=== PATIENT | female | born 1995 | race Caucasian/White ===

== ENCOUNTER 2023-03-03 15:48 | Outpatient (CLI) | payer BC, MEDICAID, SELFPAY ==
--- NOTE | 2023-03-03 16:03 | XR_ITS ---
WS: [id number] Exam: XR hand RT 2V [id number] Date/Time of Exam: 03/03/2023 4:06 PM Reason For Exam: HAND PAIN, RIGHT Findings: No fractures, soft tissue swelling, or unusual calcifications are noted. The hand shows normal bony alignment. There is no irregularity of the bony architecture. XR/XR hand RT 2V [id number] IMPRESSION: Normal right hand.
== END 2023-03-03 15:49 | disposition home or self-care (01) ==
PROVIDERS: PCP Nurse Practitioner Family; Visit Provider Nurse Practitioner Family
DX: M79.641 Pain in right hand (principal)
CPT/HCPCS: 73120

== ENCOUNTER 2023-07-13 08:32 | Emergency (ER) | payer BC, MEDICAID, SELFPAY ==
[2023-07-13 08:47] VITALS: BP 130/85; PULSE 66; TEMP 36.8; O2SAT 99; BMI 32.9
[2023-07-13 09:00] LABS: Basophils # 0.1 10^3/uL (0.0-0.1); Basophils % 1.4 %; Eosinophils # 0.6 10^3/uL (0.0-0.8); Eosinophils % 7.8 %; Hematocrit 40.8 % (36-47); Lymphocytes # 2.1 10^3/uL (0.8-4.8); Lymphocytes % 30.5 %; Mean Corpuscular HGB Conc 32.4 g/dL (30-55); Mean Corpuscular Hemoglobin 28.3 pg (27-33); Mean Corpuscular Volume 87.4 fl (85-98); Mean Platelet Volume 9.9 fL (7.4-10.4); Monocytes # 0.4 10^3/uL (0.2-0.9); Monocytes % 5.8 %; Neutrophils # 3.79 10^3/uL (1.8-7.7); Neutrophils % 54.2 %; Nucleated Red Blood Cells % 0 %; Platelet Count 291 10^3/cmm (157-399); Red Blood Count 4.67 10^6/uL (3.85-5.65); Red Cell Distribution Width 11.9 % (12.1-15.1); White Blood Count 7.01 10^3/uL (3.29-11.43)
--- NOTE | 2023-07-13 09:12 | W.ED.ABDPA2 ---
HPI - Abdominal Pain General: Chief Complaint: Abdominal Pain Stated Complaint: abd pain Time Seen by Provider: 07/13/23 08:37 Source: patient Mode of arrival: ambulatory History of Present Illness: 28-year-old female complains of intermittent abdominal pain for the last couple of days. She has not noticed anything that exacerbates or relieves it she does notice that when she gets to the last for relatively brief. At times epigastric left upper quadrant region she notes she will get loose stools after it resolves that are usually mildly acholic. She denies any dysuria urgency or frequency or hematuria no hematochezia melena hematemesis coffee-ground emesis. Patient previously has had a and pelvic exploratory for ectopic . No fever sweats or chills. MD elicited complaint: abdominal pain Onset (ago): day(s) Pain Consistency: intermittent Location: Epigastric and LUQ Severity: moderate Quality: cramping Exacerbating factors: nothing Relieving factors: nothing Associated Symptoms: Reports GI cramping and diarrhea (Loose stools); Denies anorexia, belching, bloating, change in bowel habits, change in stool character, chills, coffee ground emesis, constipation, dyspepsia, dysuria, excessive flatus, fever(s), heartburn, hematochezia, hematuria, hematemesis, fecal incontinence, loose stools, melena, nausea, poor appetite, syncope and vomiting Review of Systems Const: Denies: fever(s) or chills Card: Denies: chest pain or syncope Resp: Denies: dyspnea GI: Reports: diarrhea (Loose stools) and GI cramping; Denies: abdominal pain, nausea, vomiting, hematemesis, coffee ground emesis, heartburn, constipation, bloating, belching, excessive flatus, fecal incontinence, change in bowel habits, change in stool character, hematochezia or melena : Denies: dysuria, urinary frequency, urinary urgency or hematuria Musc: Denies: neck pain or back pain Skin/Breast: Denies: rash PFSH ED PFSH: Family History (Updated 03/03/23 @ 08:01 by Cira Pepper LPN) Denies family history of Colon cancer Ovarian cancer Diabetes Heart disease Hypercholesteremia Breast cancer Hypertension Uterine cancer Thyroid disease Stroke Physical Exam Const: COMMON NORMALS: no acute distress GENERAL APPEARANCE: cooperative and comfortable ORIENTATION/CONSCIOUSNESS: Yes awake, Yes oriented to person, Yes oriented to place and Yes oriented to time HENMT: COMMON NORMALS: normocephalic, atraumatic and hearing grossly normal bilaterally HEAD & SCALP: normocephalic and atraumatic Resp: COMMON NORMALS: normal respiratory effort, No retractions, No use of accessory muscles and clear to auscultation bilaterally AUSCULTATION: clear to auscultation bilaterally Cardio: COMMON NORMALS: regular rate, regular rhythm and No murmurs present (Cardio) RATE: regular rate RHYTHM: regular rhythm GI: COMMON NORMALS: No hepatosplenomegaly present AUSCULTATION: Yes normoactive bowel sounds PALPATION: Yes Tenderness to palpation present (GI) Details: RUQ (Vague tenderness, negative Orosco sign), No Guarding due to palpation present (GI) and Yes No hepatosplenomegaly present Extremity: COMMON NORMALS: normal to inspection, capillary refill normal, no clubbing, cyanosis or edema, no calf tenderness and no pedal edema Neuro: SENSORIUM/ORIENTATION: Yes oriented to person, Yes oriented to place and Yes oriented to time Skin: COMMON NORMALS: no rashes or lesions noted GENERAL SKIN EXAM: no rashes or lesions noted Course Vital Signs: Vital signs: Vital Signs Temperature 98.3 F 07/13/23 08:47 Pulse Rate 65 07/13/23 10:38 Respiratory Rate 16 07/13/23 10:38 Blood Pressure 128/75 07/13/23 10:38 Pulse Oximetry 100 07/13/23 10:38 Oxygen Delivery Me thod Room Air 07/13/23 08:47 MDM - Abdominal Pain Medical Decision Making Labs reviewed no significant abnormalities. She has some vague abdominal discomfort but nothing suggestive of peritonitis or acute ongoing issue. She is somewhat better after medication and IV fluids. Discharge home with antiemetics clear liquid diet. Some of her history is suggestive of biliary colic if she has persistent or recurrent symptoms encouraged to follow-up with her primary care doctor can sideration of further evaluation including possible ultrasound of the gallbladder and HIDA scan as indicated. Medical Records I reviewed the patient's medical records. Lab Data I reviewed the patient's lab results. 07/13/23 08:53 07/13/23 08:53 Labs/Radiology: Laboratory Results WBC 7.01 10^3/uL (3.29-11.43) 07/13/23 08:53 RBC 4.67 10^6/uL (3.85-5.65) 07/13/23 08:53 Hgb 13.20 g/dL (11.27-16.99) 07/13/23 08:53 Hct 40.8 % (36-47) 07/13/23 08:53 MCV 87.4 fl (85-98) 07/13/23 08:53 MCH 28.3 pg (27-33) 07/13/23 08:53 MCHC 32.4 g/dL (30-55) 07/13/23 08:53 RDW 11.9 % (12.1-15.1) L 07/13/23 08:53 Plt Count 291 10^3/cmm (157-399) 07/13/23 08:53 MPV 9.9 fL (7.4-10.4) 07/13/23 08:53 Neut % (Auto) 54.2 % 07/13/23 08:53 Lymph % (Auto) 30.5 % 07/13/23 08:53 [place] % (Auto) 5.8 % 07/13/23 08:53 Eos % (Auto) 7.8 % 07/13/23 08:53 Baso % (Auto) 1.4 % 07/13/23 08:53 Neut # (Auto) 3.79 10^3/uL (1.8-7.7) 07/13/23 08:53 Lymph # (Auto) 2.1 10^3/uL (0.8-4.8) 07/13/23 08:53 [place] # (Auto) 0.4 10^3/uL (0.2-0.9) 07/13/23 08:53 Eos # (Auto) 0.6 10^3/uL (0.0-0.8) 07/13/23 08:53 Baso # (Auto) 0.1 10^3/uL (0.0-0.1) 07/13/23 08:53 Nucleated RBC % (auto) 0 % 07/13/23 08:53 Nucleated RBCs # 0.0 /100WBC 07/13/23 08:53 Sodium 140 mmol/L (136-145) 07/13/23 08:53 Potassium 3.9 mmol/L (3.5-5.1) 07/13/23 08:53 Chloride 105 mmol/L (98-107) 07/13/23 08:53 Carbon Dioxide 27 mmol/L (22-29) 07/13/23 08:53 Anion Gap 11.9 (5-19) 07/13/23 08:53 BUN 10 mg/dL (6-20) 07/13/23 08:53 Creatinine 0.6 mg/dL (0.5-0.9) 07/13/23 08:53 GFR Calculation 119.9 mL/min (90-130) 07/13/23 08:53 Glucose 93 mg/dL (65-115) 07/13/23 08:53 Calculated Osmolality 289 mOsm/kg (285-295) 07/13/23 08:53 Calcium 8.9 mg/dL (8.5-10.5) 07/13/23 08:53 Total Bilirubin 0.7 mg/dL (0.15-1.2) 07/13/23 08:53 AST 14 U/L (0-32) 07/13/23 08:53 ALT 16 U/L (0-33) 07/13/23 08:53 Alkaline Phosphatase 78 U/L (35-105) 07/13/23 08:53 Total Protein 7.4 g/dL (6.6-8.7) 07/13/23 08:53 Albumin 4.3 g/dL (3.5-5.2) 07/13/23 08:53 Globulin 3.1 g/dL (1.3-4.6) 07/13/23 08:53 Lipase 22 U/L (13-60) 07/13/23 08:53 Urine Color Straw (Yellow) 07/13/23 09:22 Urine Appearance Hazy (CLEAR) A 07/13/23 09:22 Urine pH 5 (5-7) 07/13/23 09:22 Ur Specific [place] 1.010 (1.005-1.030) 07/13/23 09:22 Urine Protein Neg (Negative) 07/13/23 09:22 Urine Glucose (UA) Norm (Normal) 07/13/23 09:22 Urine Ketones Negative (Negative) 07/13/23 09:22 Urine Blood Neg (Negative) 07/13/23 09:22 Urine Nitrate Negative (Negative) 07/13/23 09:22 Urine Bilirubin Neg (Negative) 07/13/23 09:22 Urine Urobilinogen Norm mg/dL (Negative) 07/13/23 09:22 Ur Leukocyte Esterase Trace (Negative) H 07/13/23 09:22 Urine RBC 0-4 /hpf (0-2) H 07/13/23 09:22 Urine WBC 5-10 /hpf (0-5) H 07/13/23 09:22 Ur Squamous Epith Cells 5-10 /hpf (0-5) H 07/13/23 09:22 Amorphous Sediment Not Reportable 07/13/23 09:22 Urine Bacteria 1+ /hpf (NONE) H 07/13/23 09:22 No radiology studies performed this visit Discharge Plan Discharge Patient Disposition: Home Clinical Impression: Gastroenteritis Condition: Stable Prescriptions: New ondansetron HCl 4 mg tablet 4 mg PO Q6H PRN (Reason: nausea and vomiting) Qty: 20 0RF No Action erythromycin 5 mg/gram (0.5 %) ointment 1 applic ophthalmic (eye) 6XD 10 Days Qty: 3.5 0RF Discharge Orders: Discharge ED (Routine); Ordered 07/13/23 Ordered By: Blaze Orosco Referrals: Diamond Rendon FNP [Primary Care Provider] - Discharge Diet: Clear Liquid Discharge Activity: Increase activity as tolerated Patient Instructions: Gastroenteritis (ED), Opioid Safety, Pain Management Activity Restrictions/Additional Instructions: Clear liquid diet for 24 to 48 hours and advance as tolerated Coding Level of Care Code ED Mechanical Maintenance Engineer for Ana Gray
[2023-07-13 09:16] LABS: Alanine Aminotransferase 16 U/L (0-33); Albumin Level 4.3 g/dL (3.5-5.2); Alkaline Phosphatase 78 U/L (35-105); Anion Gap 11.9 (5-19); Aspartate Amino Transferase 14 U/L (0-32); Blood Urea Nitrogen 10 mg/dL (6-20); Calcium 8.9 mg/dL (8.5-10.5); Carbon Dioxide 27 mmol/L (22-29); Chloride 105 mmol/L (98-107); Globulin 3.1 g/dL (1.3-4.6); Glomerular Filtration Rate 119.9 mL/min (90-130); Glucose 93 mg/dL (65-115); Lipase 22 U/L (13-60); Osmolality Calculated 289 mOsm/kg (285-295); Potassium 3.9 mmol/L (3.5-5.1); Sodium 140 mmol/L (136-145); Total Bilirubin 0.7 mg/dL (0.15-1.2); Total Protein 7.4 g/dL (6.6-8.7)
[2023-07-13] MEDS: ondansetron 2 mg/ML SDV 2 mL 4 MG IVP (09:30)
[2023-07-13] MEDS: sodium chloride 0.9% 1,000 ML 999 ML IV (09:30)
[2023-07-13 10:04] LABS: Glucose Urine UA Norm (Normal); Ketones Urine Negative (Negative); Protein Urine Neg (Negative); Urine Appearance Hazy (CLEAR); Urine Color Straw (Yellow); pH Urine 5 (5-7)
[2023-07-13 10:05] LABS: Add Urine Culture? No; Add Urine Microscopic? YES; Bacteria Urine 1+ /hpf; Bilirubin Urine Neg (Negative); Blood Urine Neg (Negative); Leukocyte Esterase Urine Trace (Negative); Nitrate Urine Negative (Negative); RBC Urine 0-4 /hpf (0-2); Urobilinogen Urine Norm (Negative)
--- NOTE | 2023-07-13 10:32 | PC.NURSE ---
one liter infused, patient declined the second liter. notified.
[2023-07-13 10:38] VITALS: BP 128/75; PULSE 65; RESP 16; O2SAT 100
== END 2023-07-13 10:39 | disposition home or self-care (01) ==
PROVIDERS: Emergency Provider Family Medicine; PCP Nurse Practitioner Family
DX: K52.9 Noninfective gastroenteritis and colitis, unspecified (principal)
CPT/HCPCS: 80053; 81001; 83690; 85025; 96374; 99284; J2405; J7030

== ENCOUNTER 2023-07-29 09:21 | Outpatient (CLI) | payer BC, MEDICAID, SELFPAY ==
--- NOTE | 2023-07-29 09:37 | CT_ITS ---
WS: [id number] CT ABDOMEN AND PELVIS NONCONTRAST HISTORY: ABDOMINAL PAIN TECHNIQUE: Imaging performed through the abdomen and pelvis. Coronal and sagittal reformats are submi tted. All CT scans at [place] use at least one of these dose optimization techniques: auto mated exposure control; mA and/or kV adjustment per patient size (includes targeted exams where dose is matched to clinical indication); or iterative reconstruction. DLP: 568.80 mGy.cm COMPARISON: None available. Lower thorax: Lung bases are clear. Visualized heart is normal. No hiatal hernia. Liver: Normal size liver. No mass or bile duct dilatation. Gallbladder: Normal gallbladder. No pericholecystic fluid or cholelithiasis. No gallbladder wall thic kening. Pancreas: Normal size and attenuation. Normal pancreatic duct. No pancreatitis or mass. Spleen: Normal. Adrenal glands: Normal. No mass. Right kidney: Normal size kidney with no mass or hydronephrosis. Left kidney: Normal size kidney with no mass or hydronephrosis. Aorta: Normal abdominal aorta, no aneurysm or atherosclerosis. No free fluid, intraperitoneal air or significant lymphadenopathy. GI tract: Normal noncontrast imaging of the stomach, small bowel and colon. No obstruction or wall th ickening. Normal appendix. Abdominal wall: Negative. No hernia. Pelvis: Uterus is midline. LEFT ovary is large measuring 4.4 x 3.7 x 2.8 cm. No adjacent inflammation . RIGHT ovary is smaller size. Osseous structures: Sclerotic focus in the RIGHT humeral head. Consistent with a bone island. IMPRESSION: 1. No renal obstructing or perinephric stranding. 2. Normal appendix. 3. Mildly enlarged LEFT ovary, 4.4 x 3.7 x 2.8 cm. Recommend additional pelvic ultrasound to include transvaginal imaging. 4. No GI tract obstruction or colitis.
[2023-07-29] MEDS: iohexol 350 mg/mL 500 mL Btl (per mL) PO (09:55)
== END 2023-07-29 09:22 | disposition home or self-care (01) ==
LOC: RAD 09:21
PROVIDERS: PCP Nurse Practitioner Family; Visit Provider Nurse Practitioner Family
DX: R10.9 Unspecified abdominal pain (principal); N83.8 Other noninflammatory disorders of ovary, fallopian tube and broad ligament
CPT/HCPCS: 74176; Q9967

== ENCOUNTER 2023-08-18 10:19 | Outpatient (CLI) | payer BC, MEDICAID, SELFPAY ==
--- NOTE | 2023-08-18 10:28 | US_ITS ---
WS: [id number] US transvaginal [id number] HISTORY: L OVARY ENLARGEMENT COMPARISON: CT 07/29/2023 Uterus: 10.3 cm x 5.6 cm x 4.7 cm. Mildly enlarged uterus. No fibroid or mass. Endometrium: 1.4 cm. Normal Right ovary: 3.3 cm x 2.4 cm x 3.1 cm. Normal size ovary. Dominant follicle measures 2.3 x 1.8 x 2.1 cm. No solid mass. Left ovary: 2.4 cm x 2.7 cm x 1.9 cm. Ovary is normal size by ultrasound. Ovary has decreased in size as compared to the CT. No free fluid in the cul-de-sac. IMPRESSION: 1. Normal size and appearance of the LEFT ovary. There may have been a cyst that ruptured in the inte rval. 2. Mildly enlarged uterus.
== END 2023-08-18 10:20 | disposition home or self-care (01) ==
LOC: RAD 10:19
PROVIDERS: PCP Nurse Practitioner Family; Visit Provider Nurse Practitioner Family
DX: N83.8 Other noninflammatory disorders of ovary, fallopian tube and broad ligament (principal); N85.2 Hypertrophy of uterus
CPT/HCPCS: 76830

== ENCOUNTER 2023-11-17 09:01 | Inpatient (IN) | payer MEDICAID, SELFPAY ==
[2023-11-17] VITALS (16 sets, daily range): BP systolic 94–116; BP diastolic 40–75; PULSE 62–98; RESP 9–17; TEMP 36.1–37.3; O2SAT 96–100; BMI 34.0; BMI 36.6
[2023-11-17 09:43] LABS: Basophils # 0.1 10^3/uL (0.0-0.1); Basophils % 0.8 %; Eosinophils # 0.3 10^3/uL (0.0-0.8); Hematocrit 38.8 % (36-47); Lymphocytes # 2.3 10^3/uL (0.8-4.8); Lymphocytes % 22.4 %; Mean Corpuscular HGB Conc 31.7 g/dL (30-55); Mean Corpuscular Hemoglobin 27.9 pg (27-33); Mean Platelet Volume 10.1 fL (7.4-10.4); Monocytes # 0.5 10^3/uL (0.2-0.9); Monocytes % 5.2 %; Neutrophils # 6.96 10^3/uL (1.8-7.7); Neutrophils % 68.2 %; Nucleated Red Blood Cells % 0 %; Platelet Count 259 10^3/cmm (157-399); Red Blood Count 4.41 10^6/uL (3.85-5.65); Red Cell Distribution Width 12.8 % (12.1-15.1); White Blood Count 10.21 10^3/uL (3.29-11.43)
--- NOTE | 2023-11-17 09:44 | W.ED.ABDPA2 ---
HPI - Abdominal Pain General: Chief Complaint: Abdominal Pain Stated Complaint: right side abd pain and back pain Time Seen by Provider: 11/17/23 09:05 Source: patient Mode of arrival: ambulatory History of Present Illness: 28-year-old female presents emergency room with complaint of right lower quadrant pain that began early this morning vomited once no dysuria urgency or frequency. She has previously had this pain was resolved spontaneously in the past. No vomiting or diarrhea MD elicited complaint: abdominal pain Onset (ago): minute(s) Pain Consistency: constant Location: RLQ Severity: moderate Quality: sharp Exacerbating factors: movement Relieving factors: nothing Associated Symptoms: Reports nausea; Denies anorexia, belching, bloating, change in bowel habits, change in stool character, chills, coffee ground emesis, constipation, GI cramping, diarrhea, dyspepsia, dysuria, excessive flatus, fever(s), heartburn, hematochezia, hematuria, hematemesis, fecal incontinence, loose stools, melena, poor appetite, syncope and vomiting Review of Systems Const: Denies: fever(s), chills, fatigue or malaise Card: Denies: chest pain or syncope Resp: Denies: dyspnea GI: Reports: abdominal pain and nausea; Denies: vomiting, hematemesis, coffee ground emesis, heartburn, diarrhea, constipation, bloating, GI cramping, belching, excessive flatus, fecal incontinence, change in bowel habits, change in stool character, hematochezia or melena : Denies: dysuria or hematuria Musc: Denies: neck pain or back pain Skin/Breast: Denies: rash PFSH ED PFSH: Family History Denies family history of Colon cancer Ovarian cancer Diabetes Heart disease Hypercholesteremia Breast cancer Hypertension Uterine cancer Thyroid disease Stroke Physical Exam Const: GENERAL APPEARANCE: cooperative and comfortable ORIENTATION/CONSCIOUSNESS: Yes awake, Yes oriented to person, Yes oriented to place and Yes oriented to time HENMT: COMMON NORMALS: normocephalic, atraumatic and hearing grossly normal bilaterally HEAD & SCALP: normocephalic and atraumatic Resp: COMMON NORMALS: normal respiratory effort, No retractions, No use of accessory muscles and clear to auscultation bilaterally AUSCULTATION: clear to auscultation bilaterally Cardio: COMMON NORMALS: regular rate, regular rhythm and No murmurs present (Cardio) RATE: regular rate RHYTHM: regular rhythm GI: COMMON NORMALS: No hepatosplenomegaly present AUSCULTATION: Yes normoactive bowel sounds PALPATION: Yes Tenderness to palpation present (GI) Details: RLQ, No Guarding due to palpation present (GI) and Yes No hepatosplenomegaly present : COMMON NORMALS: Yes no CVA tenderness BLADDER/KIDNEY EXAM: Yes no CVA tenderness Back/Pelvis: COMMON NORMALS: no CVA tenderness Extremity: COMMON NORMALS: normal to inspection, capillary refill normal, no clubbing, cyanosis or edema, no calf tenderness and no pedal edema Neuro: SENSORIUM/ORIENTATION: Yes oriented to person, Yes oriented to place and Yes oriented to time Skin: COMMON NORMALS: no rashes or lesions noted GENERAL SKIN EXAM: no rashes or lesions noted Course Vital Signs: Vital signs: Vital Signs Temperature 99.2 F 11/17/23 09:33 Pulse Rate 74 11/17/23 14:30 Respiratory Rate 16 11/17/23 14:30 Blood Pressure 108/75 11/17/23 14:30 Pulse Oximetry 100 11/17/23 14:30 Oxygen Delivery Me thod Room Air 11/17/23 14:30 MDM - Abdominal Pain Medical Decision Making CT question of ovarian torsion on the right. Ultrasound confirmed. discussed Dr. Holley, reviewed diagnosis. Reviewed CT and ultrasound results. Dr. Holley anticipates exploratory laparotomy. Differential Diagnosis Likely abdominal pain Medical Records I reviewed the patient's medical records. Lab Data I reviewed the patient's lab results. 11/17/23 09:30 11/17/23 09:30 Labs/Radiology: Laboratory Results WBC 10.21 10^3/uL (3.29-11.43) 11/17/23 09:30 RBC 4.41 10^6/uL (3.85-5.65) 11/17/23 09:30 Hgb 12.30 g/dL (11.27-16.99) 11/17/23 09:30 Hct 38.8 % (36-47) 11/17/23 09:30 MCV 88.0 fl (85-98) 11/17/23 09:30 MCH 27.9 pg (27-33) 11/17/23 09:30 MCHC 31.7 g/dL (30-55) 11/17/23 09:30 RDW 12.8 % (12.1-15.1) 11/17/23 09:30 Plt Count 259 10^3/cmm (157-399) 11/17/23 09:30 MPV 10.1 fL (7.4-10.4) 11/17/23 09:30 Neut % (Auto) 68.2 % 11/17/23 09:30 Lymph % (Auto) 22.4 % 11/17/23 09:30 [place] % (Auto) 5.2 % 11/17/23 09:30 Eos % (Auto) 3.0 % 11/17/23 09:30 Baso % (Auto) 0.8 % 11/17/23 09:30 Neut # (Auto) 6.96 10^3/uL (1.8-7.7) 11/17/23 09:30 Lymph # (Auto) 2.3 10^3/uL (0.8-4.8) 11/17/23 09:30 [place] # (Auto) 0.5 10^3/uL (0.2-0.9) 11/17/23 09:30 Eos # (Auto) 0.3 10^3/uL (0.0-0.8) 11/17/23 09:30 Baso # (Auto) 0.1 10^3/uL (0.0-0.1) 11/17/23 09:30 Nucleated RBC % (auto) 0 % 11/17/23 09:30 Nucleated RBCs # 0.0 /100WBC 11/17/23 09:30 Sodium 138 mmol/L (136-145) 11/17/23 09:30 Potassium 3.9 mmol/L (3.5-5.1) 11/17/23 09:30 Chloride 103 mmol/L (98-107) 11/17/23 09:30 Carbon Dioxide 25 mmol/L (22-29) 11/17/23 09:30 Anion Gap 13.9 (5-19) 11/17/23 09:30 BUN 12 mg/dL (6-20) 11/17/23 09:30 Creatinine 0.5 mg/dL (0.5-0.9) 11/17/23 09:30 GFR Calculation 148.0 mL/min (90-130) H 11/17/23 09:30 Glucose 112 mg/dL (65-115) 11/17/23 09:30 Calculated Osmolality 287 mOsm/kg (285-295) 11/17/23 09:30 Calcium 8.5 mg/dL (8.5-10.5) 11/17/23 09:30 Total Bilirubin 0.5 mg/dL (0.15-1.2) 11/17/23 09:30 AST 10 U/L (0-32) 11/17/23:30 ALT 11 U/L (0-33) 11/17/23 09:30 Alkaline Phosphatase 72 U/L (35-105) 11/17/23 09:30 Total Protein 6.9 g/dL (6.6-8.7) 11/17/23 09:30 Albumin 4.1 g/dL (3.5-5.2) 11/17/23 09:30 Globulin 2.8 g/dL (1.3-4.6) 11/17/23 09:30 HCG, Qual Negative (Negative) 11/17/23 09:30 Urine Color Yellow (Yellow) 11/17/23 10:00 Urine Appearance Clear (CLEAR) 11/17/23 10:00 Urine pH 6 (5-7) 11/17/23 10:00 Ur Specific [place] 1.020 (1.005-1.030) 11/17/23 10:00 Urine Protein Neg (Negative) 11/17/23 10:00 Urine Glucose (UA) Norm (Normal) 11/17/23 10:00 Urine Ketones Negative (Negative) 11/17/23 10:00 Urine Blood Neg (Negative) 11/17/23 10:00 Urine Nitrate Negative (Negative) 11/17/23 10:00 Urine Bilirubin Neg (Negative) 11/17/23 10:00 Urine Urobilinogen Norm mg/dL (Negative) 11/17/23 10:00 Ur Leukocyte Esterase Trace (Negative) H 11/17/23 10:00 Urine RBC 0-4 /hpf (0-2) H 11/17/23 10:00 Urine WBC 0-4 /hpf (0-5) H 11/17/23 10:00 Ur Squamous Epith Cells 0-4 /hpf (0-5) H 11/17/23 10:00 Amorphous Sediment Not Reportable 11/17/23 10:00 Urine Bacteria Trace /hpf (NONE) 11/17/23 10:00 Urine Mucus 2+ /hpf 11/17/23 10:00 All radiology interpretation(s) finalized by discharge Discharge Plan Discharge Admit Provider: Moses Holley Condition: Stable Coding Level of Care Code ED Provider Relations Representative for Ana Gray
--- NOTE | 2023-11-17 09:52 | CT_ITS ---
WS: [id number] CT ABDOMEN AND PELVIS NONCONTRAST HISTORY: Abdominal pain TECHNIQUE: Imaging performed through the abdomen and pelvis. Coronal and sagittal reformats are submi tted. All CT scans at [facility] use at least one of these dose optimization techniques: auto mated exposure control; mA and/or kV adjustment per patient size (includes targeted exams where dose is matched to clinical indication); or iterative reconstruction. DLP: 877.83 mGy.cm COMPARISON: 07/29/2023 Lower thorax: Lung bases are clear. Visualized heart is normal. No hiatal hernia. Liver: Hepatic steatosis. Otherwise negative. Gallbladder: Normal gallbladder. No pericholecystic fluid or cholelithiasis. No gallbladder wall thic kening. Pancreas: Normal size and attenuation. Normal pancreatic duct. No pancreatitis or mass. Spleen: Normal. Adrenal glands: Normal. No mass. Right kidney: Normal size kidney with no mass or hydronephrosis. Left kidney: Normal size kidney with no mass or hydronephrosis. Aorta: Normal abdominal aorta, no aneurysm or atherosclerosis. No free fluid, intraperitoneal air or significant lymphadenopathy. GI tract: The appendix is not identified on today's examination. No GI tract obstruction. Abdominal wall: Negative. No hernia. Pelvis: There is a large complex mass in the RIGHT lower quadrant which is obscuring the appendix and also abuts the broad ligament and the uterus. I suspect this is probably ovarian torsion with some h emorrhage and edema. Mass measures 5.5 x 6.9 x 7.5 cm and is in continuity with the ovarian suspensor y ligament. Osseous structures: Unremarkable. IMPRESSION: 1. Complex mass in the RIGHT lower quadrant inseparable from the broad ligament and obscuring the ap pendix. Heterogeneous mass measures 5.5 x 6.9 x 7.5 cm. Differential includes ovarian torsion, ectopi c and appendicitis. The most likely diagnosis is ovarian torsion. Recommend transvaginal pe lvic ultrasound. Correlate with negative beta hCG. 2. No free fluid. 3. The appendix is not identified and obscured by the soft tissue mass in the RIGHT lower quadrant. 4. No renal obstruction. Notified Blaze Orosco DO at 11/17/2023 11:12 AM.
[2023-11-17 09:57] LABS: HCG, Serum Qual Negative (Negative)
[2023-11-17 09:58] LABS: Alanine Aminotransferase 11 U/L (0-33); Albumin Level 4.1 g/dL (3.5-5.2); Alkaline Phosphatase 72 U/L (35-105); Anion Gap 13.9 (5-19); Aspartate Amino Transferase 10 U/L (0-32); Blood Urea Nitrogen 12 mg/dL (6-20); Calcium 8.5 mg/dL (8.5-10.5); Carbon Dioxide 25 mmol/L (22-29); Chloride 103 mmol/L (98-107); Creatinine Clr Calc Pharmacy 163.6553; Globulin 2.8 g/dL (1.3-4.6); Glucose 112 mg/dL (65-115); Osmolality Calculated 287 mOsm/kg (285-295); Potassium 3.9 mmol/L (3.5-5.1); Sodium 138 mmol/L (136-145); Total Bilirubin 0.5 mg/dL (0.15-1.2); Total Protein 6.9 g/dL (6.6-8.7)
[2023-11-17] MEDS: ketorolac 30 mg/mL INJ IVP ×2 (10:10→21:30)
[2023-11-17] MEDS: ondansetron 2 mg/ML SDV 2 mL 4 MG IVP ×2 (10:10→21:30)
[2023-11-17] MEDS: sodium chloride 0.9% 1,000 ML 999 ML IV (10:13)
--- NOTE | 2023-11-17 11:10 | US_ITS ---
WS: [id number] US pelv w/transvag [id number] HISTORY: pelvic pain - ? R ovarian torsion? COMPARISON: Transvaginal pelvic ultrasound 08/18/2023, CT 11/17/2023 Uterus: 10.6 cm x 4.8 cm x 5.8 cm. Mildly enlarged anteverted uterus. Endometrium: 1.3 cm. Small amount of fluid along the endometrial canal. No mass or increased vascular ity. Right ovary: The RIGHT ovary as visualized on the prior examination of 08/18/2023 is not identified. There is now a complex mass in the RIGHT adnexa without vascularity measuring 5.6 x 4.0 x 4.7 cm. The re is no flow identified. This is most likely an ovarian torsion within ischemic ovary. Left ovary: 3.1 cm x 3.3 cm x 2.6 cm. Normal size and vascularity, no cystic or solid masses. No free fluid in the cul-de-sac. IMPRESSION: 1. Heterogeneous RIGHT adnexal mass without vascularity measures 5.6 x 4.0 x 4.7 cm. Based upon the prior imaging from 08/18/[address] today this is most likely an ovarian torsion with loss of va scularity. Consider DIRECTOR OF PUPIL PERSONNEL PROGRAM consultation. No ovarian mass or lead point was identified on the study of . 2. No free fluid. 3. Normal LEFT ovary.
[2023-11-17 11:23] LABS: Urine Appearance Clear (CLEAR); Urine Color Yellow (Yellow); pH Urine 6 (5-7)
[2023-11-17 11:24] LABS: Add Urine Microscopic? YES; Bilirubin Urine Neg (Negative); Blood Urine Neg (Negative); Glucose Urine UA Norm (Normal); Ketones Urine Negative (Negative); Leukocyte Esterase Urine Trace (Negative); Nitrate Urine Negative (Negative); Protein Urine Neg (Negative); Urobilinogen Urine Norm (Negative)
[2023-11-17 11:38] LABS: Add Urine Culture? No; Bacteria Urine TRACE /hpf; Mucus Urine 2+ /hpf; RBC Urine 0-4 /hpf (0-2); Squamous Epithelial Cell Urine 0-4 /hpf (0-5); WBC Urine 0-4 /hpf (0-5)
[2023-11-17] MEDS: morphine 4 mg/mL SDV 1 mL IVP (13:15)
--- NOTE | 2023-11-17 16:51 | P.ANESASSM_ITS ---
Pre-Anesthetic Assessment Height/Weight: Height 1.55 m Weight 81.647 kg Temp Pulse Resp BP Pulse Ox O2 Del Method 98.0 F 68 17 115/73 100 Room Air 11/17/23 16:40 11/17/23 16:40 11/17/23 16:40 11/17/23 16:40 11/17/23 16:40 11/17/23 16:40 Operation Date: 11/17/23 17:00 Proposed Procedures p Laparoscopy Diagnostic(Not Applicable) - Moses Hollye MD Familial anesthetic complications: none Was Beta Liam taken within 24 hours: N/A Was Clonidine taken within 24 hours: N/A Last intake: Intake Last Liquid Date 11/17/23 Last Liquid Time 07:00 Last Solid Date 11/16/23 Last Solid Time 22:00 Social Tobacco (vapes) and No alcohol Exam alert, oriented x 3, clear to auscultation bilaterally and regular rate & rhythm Airway Submandibular: within normal limits Cervical ROM: within normal limits Mallampati: Class II Dentition: full Metabolic Morbid Obesity Anesthetic Plan ASA status: 2E Anesthesia: General (Mod RSI) Medications/Allergies Home Medications Medication Instructions Recorded Confirmed Last Taken Type ascorbic acid (vitamin C) 500 mg 500 mg PO BID 11/17/23 11/17/23 Unknown History tablet (Vitamin C) Allergies Allergy/AdvReac Type Severity Reaction Status Date / Time No Known Allergies Allergy Verified 11/17/23 09:37 [facility] Anesthesia Family History Denies family history of Colon cancer Ovarian cancer Diabetes Heart disease Hypercholesteremia Breast cancer Hypertension Uterine cancer Thyroid disease Stroke Data Anesthesia 11/17/23 09:30 11/17/23 09:30 Short CBC 11/17/23 Range/Units 09:30 WBC 10.21 (3.29-11.43) 10^3/uL Hgb 12.30 (11.27-16.99) g/dL Hct 38.8 (36-47) % MCV 88.0 (85-98) fl Plt Count 259 (157-399) 10^3/cmm Neut % (Auto) 68.2 % Neut # (Auto) 6.96 (1.8-7.7) 10^3/uL BMP 11/17/23 09:30 Sodium 138 Potassium 3.9 Chloride 103 Carbon Dioxide 25 BUN 12 Creatinine 0.5 Glucose 112 Calcium 8.5 Liver Function 11/17/23 Range/Units 09:30 Total Bilirubin 0.5 (0.15-1.2) mg/dL AST 10 (0-32) U/L ALT 11 (0-33) U/L Alkaline Phosphatase 72 (35-105) U/L Albumin 4.1 (3.5-5.2) g/dL Urine 11/17/23 Range/Units 10:00 Urine Color Yellow (Yellow) Urine Appearance Clear (CLEAR) Urine pH 6 (5-7) Ur Specific [place] 1.020 (1.005-1.030) Urine Protein Neg (Negative) Urine Glucose (UA) Norm (Normal) Urine Ketones Negative (Negative) Urine Nitrate Negative (Negative) Urine Bilirubin Neg (Negative) Ur Leukocyte Esterase Trace H (Negative) Urine RBC 0-4 H (0-2) /hpf Urine WBC 0-4 H (0-5) /hpf Cardiac Studies: 2 No Data to Display
--- NOTE | 2023-11-17 16:51 | P.HP_ITS ---
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 Review of Systems 2 Const: Denies: fever(s), chills, fatigue or malaise Card: Denies: chest pain or syncope Resp: Denies: dyspnea GI: Reports: abdominal pain and nausea; Denies: vomiting, hematemesis, coffee ground emesis, heartburn, diarrhea, constipation, bloating, GI cramping, belching, excessive flatus, fecal incontinence, change in bowel habits, change in stool character, hematochezia or melena : Denies: dysuria or hematuria Musc: Denies: neck pain or back pain Skin/Breast: Denies: rash Medications/Allergies Home Medications Medication Instructions Recorded Confirmed Last Taken Type ascorbic acid (vitamin C) 500 mg 500 mg PO BID 11/17/23 11/17/23 Unknown History tablet (Vitamin C) Allergies Allergy/AdvReac Type Severity Reaction Status Date / Time No Known Allergies Allergy Verified 11/17/23 09:37 PFSH TOXICS PROGRAM OFFICER 2 PFSH: Family History Denies family history of Colon cancer Ovarian cancer Diabetes Heart disease Hypercholesteremia Breast cancer Hypertension Uterine cancer Thyroid disease Stroke Vitals/I&O/Wt Last Vital Signs Temp 98.0 F 11/17/23 16:40 Pulse 68 11/17/23 16:40 Resp 17 11/17/23 16:40 BP 115/73 11/17/23 16:40 Pulse Ox 100 11/17/23 16:40 O2 Del Method Room Air 11/17/23 16:40 Weight last 48 hrs Weight 81.647 kg Physical Exam 2 Const: COMMON NORMALS: no acute distress, average body habitus and patient oriented x3 GENERAL APPEARANCE: cooperative and well kempt HENMT: COMMON NORMALS: normocephalic and atraumatic HEAD & SCALP: n ormocephalic and atraumatic Neck/C-Spine: COMMON NORMALS: full ROM Chest: COMMONS NORMALS: normal inspection of the chest Resp: COMMON NORMALS: normal respiratory effort Cardio: COMMON NORMALS: regular rate and regular rhythm RATE: regular rate RHYTHM: regular rhythm GI: INSPECTION: Yes normal to inspection PALPATION: Yes Tenderness to palpation present (GI) Details: RLQ : OTHER: deferred Neuro: COMMON NORMALS: patient oriented x3 Psych: APPEARANCE: Yes well kempt Data 11/17/23 09:30 11/17/23 09:30 Results Labs OB ([facility]): 2 Hct 38.8 % (36-47) 11/17/23 Hgb 12.30 g/dL (11.27-16.99) 11/17/23 Plt Count 259 10^3/cmm (157-399) 11/17/23 HCG, Qual Negative (Negative) 11/17/23 [employer]S [employer] [place] [address] Ultrasound Report Signed Patient: Eden Finch Unit #: [id number] : 1995 Age/Sex: 28 / F ADM Date: 11/17/23 Loc: ER Room/Bed: Attending Dr: Ordering Provider/Ordering MD: Blaze Orosco DO Date of Service: 11/17/23 Procedure(s): US pelv w/transvag [id number] Accession Number(s): [id number] Report Number: [id number] WS: [id number] US pelv w/transvag [id number] HISTORY: pelvic pain - ? R ovarian torsion? COMPARISON: Transvaginal pelvic ultrasound 08/18/2023, CT 11/17/2023 Uterus: 10.6 cm x 4.8 cm x 5.8 cm. Mildly enlarged anteverted uterus. Endometrium: 1.3 cm. Small amount of fluid along the endometrial canal. No mass or increased vascularity. Right ovary: The RIGHT ovary as visualized on the prior examination of 08/18/2023 is not identified. There is now a complex mass in the RIGHT adnexa without vascularity measuring 5.6 x 4.0 x 4.7 cm. There is no flow identified. This is most likely an ovarian torsion within ischemic ovary. Left ovary: 3.1 cm x 3.3 cm x 2.6 cm. Normal size and vascularity, no cystic or solid masses. No free fluid in the cul-de-sac. IMPRESSION: 1. Heterogeneous RIGHT adnexal mass without vascularity measures 5.6 x 4.0 x 4.7 cm. Based upon the prior imaging from 08/18/[address] today this is most likely an ovarian torsion with loss of vascularity. Consider PARTS CLERK PLANT MAINTENANCE consultation. No ovarian mass or lead point was identified on the study of 08/18/2023. 2. No free fluid. 3. Normal LEFT ovary. Dictated By: Aaliyah Hernandez DO A&P Assessment and plan (1) Torsion of right ovary: MRS. Finch 28 y/o female GeP2 with abdominal pain that worsen this morning. ER US suggestive of a right ovarian torsion. hCG is negative. Past OB Hx significant for an ectopic preganacy for which she had a salpingectomy. However she does not remember what side was the ectopic on. Plan Diagnostic laparoscopy Attestations 2 Medical Necessity Statement*: In my professional opinion per admitting diagnosis Coding Level of Care Code Acute Code for g Fwd Diagnoses Torsion of right ovary N83.511
[2023-11-17] MEDS: sodium chloride 0.9% 1,000 ML 30 ML IV (16:54)
[2023-11-17] MEDS: ceFAZolin 1,000 MG in sodium chloride 0.9% (plus) 50 ML 100 MG IV (17:23)
[2023-11-17] MEDS: BUPivacaine 0.5% INJ 10 mL 30 ML INJECTION (19:11)
[2023-11-17] MEDS: BUPivacaine liposome 13.3 mg/mL SDV 10 mL 266 MG INFILTRATI (19:12)
[2023-11-17] MEDS: sodium chloride 0.9% 100 mL Bag XX (19:16)
--- NOTE | 2023-11-17 19:35 | PM.OP ---
Operative Report Date of procedure: November 17, 2023 Pre-op diagnosis: right ovarian mass vs ovarian torsion Post-op diagnosis: Right ovary hemorragic rupture cyst Post-op findings: hemoperitonium, rupture right ovarian cyst Procedure done: [facility] laparoscopy Laparotomy Surgeon: Moses Holley MD Estimated blood loss (mL): 400 IV fluids (mL): 1,600 Urine output (mL): 200 Complications: hemoperitonium Procedure: After informed consent, the patient was taken to the operating room where general anesthesia was administered. Pre-Procedure Time-Out verifying the correct patient identity, correct procedure verified with consent, correct site and side, correct patient position, availability of correct implants and any special equipment or requirements was performed and acknowledge by the OR team. She was placed in the dorsal lithotomy position and prepped and draped in sterile fashion. The patient was examined under anesthesia and found to have a normal uterus with normal adnexa. A Soni catheter was placed in the bladder. A weighted speculum was placed in the vagina, and the anterior lip of cervix was grasped with the single toothed tenaculum. The uterus was sounded to a measure [] cm. A uterine manipulator was advanced into the endocervical and its bulb filled with NS. Tenaculum was removed after uterine manipulator was secured. The speculum was removed from the vagina. The attention was brought to abdomen after changing gloves. The base of the umbilicus was grasped with an Allis clamp and with 2 towel clamp bilaterally tenting up the umbilicus an intraumbilical incision was made with a scalpel. While tenting up on the abdomen, a Verres needle with sleeve was admitted into the intra-abdominal cavity. A saline drop test was performed and noted to be within normal limits. Pneumoperitoneum was attained with 4 liters of carbon dioxide. The gas was seen to flow freely with normal resistance, so the CO2 gas was advanced to a higher setting. The abdomen was insufflated to an adequate distension. Once an adequate distention was reached, the Verres needle was removed. Then a 5 mm Optiview trocar and cannula were inserted under direct visualization without complications. Trocars were removed and the laparoscope was inserted. At this time a hemoperitonium noted mostly on the right side and the descision was made to proceed with a laparotomy for better exposure and to quickly control the bledding. A Pfannenstiel incision was made 2 cm above the symphysis pubis and extended sharply to the rectus fascia. The fascial incision was bilaterally incised with curved Gordillo scissors, and the rectus sheath was superiorly and interiorly by sharp and blunt dissection. The peritoneum was grasped between two Tiffanie clamps, elevated, and incised with a scissors. the blood was cleared and the pelvis was examined and the rupture hemorrhagic cyst was identified. The abdomen was thoroughly explored. An Jn retractor was placed into the incision, and the bowel was packed away with moist laparotomy sponges. The suspensory ligament of the right ovary was anchored with a [place] clamp. The ovarian capsule was identified. A running mattress sutured was place with 3-0 Vicryl suture was used to close the ovary. When the lower pole of the ovary was reached the same sutured was use tools sutured the edges of the ovary in a running inverting fashion. The pelvis was copiously irrigated with warm normal saline, and all sponges and instruments were removed. The parietal peritoneum was closed with running #2-0 Vicryl. The fascia was closed with running #0 Vicryl. The skin was closed with 4-0 Monocryl in a subcuticular fashion. Sponge, lap, needle, and instrument counts were correct times three. The patient was taken to the recovery room, awake and in stable condition.
[2023-11-17] MEDS: dextrose 5%-lactated ringers 1,000 ML 125 ML IV (21:29)
[2023-11-18 00:05] VITALS: BP 99/64; PULSE 92; RESP 16; TEMP 36.8; O2SAT 96
[2023-11-18 04:33] VITALS: BP 97/61; PULSE 86; RESP 16; TEMP 36.8; O2SAT 96
[2023-11-18] MEDS: ketorolac 30 mg/mL INJ IVP ×3 (04:35→16:01)
[2023-11-18] MEDS: dextrose 5%-lactated ringers 1,000 ML 125 ML IV ×3 (04:40→19:44)
[2023-11-18 05:56] LABS: Hematocrit 29.5 % (36-47); Mean Corpuscular HGB Conc 32.2 g/dL (30-55); Mean Corpuscular Hemoglobin 28.7 pg (27-33); Mean Corpuscular Volume 89.1 fl (85-98); Mean Platelet Volume 10.3 fL (7.4-10.4); Platelet Count 203 10^3/cmm (157-399); Red Blood Count 3.31 10^6/uL (3.85-5.65); Red Cell Distribution Width 13.1 % (12.1-15.1); White Blood Count 13.83 10^3/uL (3.29-11.43)
[2023-11-18 06:00] VITALS: BMI 36.5
--- NOTE | 2023-11-18 06:31 | ANE.PACU2 ---
Inpatient post-anesthesia follow up: Airway intact: Yes Vital signs: Temperature 98.3 F Pulse Rate 86 Respiratory Rate 16 Blood Pressure 97/61 Pulse Oximetry 96 Oxygen Delivery Me thod Room Air Oxygen Flow Rate Fraction of Inspir ed Oxygen Hydration adequate: Yes Nausea and vomiting: No Pain level: 3 Mental status: Baseline
[2023-11-18 07:31] VITALS: BP 95/67; PULSE 79; RESP 18; TEMP 36.8; O2SAT 100
[2023-11-18] MEDS: docusate sodium 100 mg Capsule PO ×2 (08:14→17:38)
[2023-11-18] MEDS: ascorbic acid 500 mg Tablet PO ×2 (08:14→17:38)
[2023-11-18 15:56] VITALS: BP 96/61; PULSE 99; RESP 16; TEMP 37.1; O2SAT 99
--- NOTE | 2023-11-18 16:14 | PM.PN ---
Subjective Subjective: Ms. Finch 28-year-old female is status post diagnostic laparoscopy converted to laparotomy due to ruptured hemorrhagic cyst on the right side. Vitals/I&O/Wt Last Vital Signs Temp 98.8 F 11/18/23 15:56 Pulse 99 11/18/23 15:56 Resp 16 11/18/23 15:56 BP 96/61 11/18/23 15:56 Pulse Ox 99 11/18/23 15:56 O2 Del Method Room Air 11/18/23 15:56 11/18/23 11/18/23 11/18/23 06:59 14:59 22:59 Intake Total 897.917 / 3797.917 1740 / 1740 Output Total 1300 / 2100 850 / 850 Balance -402.083 / 1697.917 890 / 890 Weight last 48 hrs Weight 87.634 kg Weight 87.906 kg Weight 81.647 kg Physical Exam Narrative: GA: Alert and oriented ?3. HEENT: WNL. Heart: Regular rate and rhythm. Lungs: Clear to auscultation bilaterally. Abdomen: Bowel sounds present, nontender, minimal tenderness, incision clean and dry, no redness, pain or edema. DOMESTIC TRAVEL CONSULTANT: No bleeding. Extremities: No edema, no cyanosis, no calves pain. Urinary Catheter Management: Soni Latex: Cath Placed During This Visit: yes Urinary Catheter Date of Insertion: 11/17/23 Urinary Catheter Time of Insertion: 17:47 Data 11/18/23 05:46 11/17/23 09:30 A&P Assessment and plan (1) Hemorrhagic cyst of right ovary: Ms. Finch 28-year-old female is status post diagnostic laparoscopy converted to laparotomy due to ruptured hemorrhagic cyst on the right side postoperative day 1. Admitted from the ER due to abdominal pain and with the presumptive diagnosis of right ovarian torsion. During the initial laparoscopic evaluation and hemoperitoneum was noted, and the case was converted to an open laparotomy. She is afebrile and hemodynamically stable. Overnight observation uneventful. Tolerating diet well. Ambulating without difficulty. Plan Continue postop observation. Discharge home tomorrow Attestations Medical Necessity Statement*: In my professional opinion per admitting diagnosis Coding Level of Care Code Acute Code for Chg Fwd Diagnoses Hemorrhagic cyst of right ovary N83.201
[2023-11-18] MEDS: ibuprofen 800 mg tablet PO (19:44)
[2023-11-18 20:00] VITALS: BP 112/71; PULSE 83; RESP 18; TEMP 37.1; O2SAT 98
[2023-11-19] VITALS: BP 93/54; PULSE 93; RESP 17; TEMP 36.5; O2SAT 97
[2023-11-19] MEDS: ibuprofen 800 mg tablet PO ×2 (03:42→12:50)
[2023-11-19] MEDS: dextrose 5%-lactated ringers 1,000 ML 125 ML IV (03:42)
[2023-11-19 04:00] VITALS: BP 98/64; PULSE 76; RESP 16; TEMP 36.8; O2SAT 96
[2023-11-19 06:00] VITALS: BMI 36.4
[2023-11-19 07:54] VITALS: BP 112/75; PULSE 74; RESP 18; TEMP 36.4; O2SAT 98
[2023-11-19] MEDS: ascorbic acid 500 mg Tablet PO (08:49)
[2023-11-19] MEDS: docusate sodium 100 mg Capsule PO (08:49)
[2023-11-19] MEDS: HYDROcodone-acetaminophen 5-325 mg Tablet PO (08:49)
--- NOTE | 2023-11-19 09:26 | PC.CHAP ---
Pastoral Care Encounter/Spiritual Assessment Type of Contact [] Declined armature repairer visit [] Patient/Family/Request visit [] Outpatient visit [] Follow-up visit [] Physician referral [] Code/Alert [x] Routine visit [] Staff referral [] Actively dying [] Patient sleeping [] Family support [] [] Out of room [] Palliative care [] [] Receiving care in room [] Pre-surgical visit [] Trauma [] Long length of stay [] ICU visit [] Other: Relational/Emotional Strength [x] Patient feels connected with others/family/visitors/staff [] Distress [] Loneliness/isolation [] Abandonment Spirituality of Patient [] Person of Beth [] Attends Congregation of their Beth [] Believes in Prayer [] Reads Bible or Methodist materials [x] There are Spiritual issues to be addressed Machine Setter Automatic Interventions [] Prayer [] Active listening [x] Non-anxious presence [x] Spiritual/emotional support [] Crisis/trauma care [] Spiritual counseling [] Bereavement support [] Provided bereavement packet [] Provided Bible/devotional materials [] Provided toy/stuffed animal, coloring book to patient or family member [] Provided Communion [] Anointing/[place] [] Salvation [x] Completed spiritual assessment [] Other: Impact on Illness or Injury [] Angry [] Fearful [] Anxious [] Often cries [] Exhaustion [] Unable to work [] Unable to attend sabianist [] Unable to walk/stand [] Unable to read [] Unable to drive [] Unable to eat/drink [] Unable to sleep [] Unable to be with family [] Patient intubated [] Other: Summary Time spent with patient 5 min
--- NOTE | 2023-11-19 10:40 | P.PN_ITS ---
CLINICAL DATA ABSTRACTOR Subjective 2 Subjective: Interval history: 28 y.o. s/p laparotomy for ruptured right hemorrhagic ovarian cyst November 17, 2023 c/o mild incisional pain, relieved with pain medications eating, voiding, ambulating well no other c/o Vitals/I&O/Wt Last Vital Signs Temp 97.6 F 11/19/23 12:07 Pulse 68 11/19/23 12:07 Resp 18 11/19/23 12:07 BP 110/71 11/19/23 12:07 Pulse Ox 100 11/19/23 12:07 O2 Del Method Room Air 11/19/23 12:07 11/18/23 11/19/23 11/19/23 22:59 06:59 14:59 Intake Total 1072.917 / 2812.917 1500 / 4312.917 2160 / 2160 Output Total 1800 / 2650 Balance 1072.917 / 1962.917 -300 / 2444.336 3873 / 2160 Weight last 48 hrs Weight 192 lb 14.4 oz Weight 193 lb 3.2 oz Weight 193 lb 12.8 oz Physical Exam 2 Narrative: Afebrile, VS normal Comfortable, awake, alert Abd: soft, nondistended, nontender Wound healing well Ext: normal Urinary Catheter Management: Soni Latex: Cath Placed During This Visit: yes Urinary Catheter Date of Insertion: 11/17/23 Urinary Catheter Time of Insertion: 17:47 Data 11/18/23 05:46 11/17/23 09:30 A&P Assessment and plan (1) Hemorrhagic cyst of right ovary: s/p laparotomy for ruptured right hemorrhagic ovarian cyst November 17, 2023 doing well plan discharge today take iron OTC 1-2 x per day Rx Percocet 10/325, one PO BID PRN, #30 call / return if fever, chills, pain, bleeding f/u in one week Attestations 2 Medical Necessity Statement*: patient s/p laparotomy for hemorrhagic ovarian cyst, plan discharge today Coding Level of Care Code Acute Code for Chg Fwd Diagnoses Hemorrhagic cyst of right ovary N83.201 Time Spent (min) 20
[2023-11-19 12:07] VITALS: BP 110/71; PULSE 68; RESP 18; TEMP 36.4; O2SAT 100
--- NOTE | 2023-11-19 13:27 | P.DS_ITS ---
Discharge Providers ACCOUNT SUPPORT ASSOCIATE Date of Admission: 11/17/23 18:07 Date of Discharge: 11/19/23 Attending Provider at Admission: Moses Holley MD Attending Provider at Discharge: Moses Holley MD Consults: none Primary Care Provider: Diamond Rendon Diagnoses at Discharge Discharge Diagnosis (1) Hemorrhagic cyst of right ovary: Details from hospital stay: patient presented with abdominal pain underwent laparotomy for hemoperitoneum and ruptured hemorrhagic right ovarian cyst did well postoperatively with no complications patient was discharged home on POD #2 Status: Acute Reason for Visit Reason for Visit: right side abd pain and back pain Hospital Course Hospital Course patient presented with abdominal pain underwent laparotomy for hemoperitoneum and ruptured hemorrhagic right ovarian cyst did well postoperatively with no complications patient was discharged home on POD #2 Physical Exam Narrative: Weight 192 lbs, 5?1? Afebrile, VS normal Comfortable, awake, alert Abd: soft, nondistended, nontender Wound healing well Ext: normal Urinary Catheter Management: Soni Latex: Cath Placed During This Visit: yes Urinary Catheter Date of Insertion: 11/17/23 Urinary Catheter Time of Insertion: 17:47 Discharge Data Studies Completed and Pending Completed Studies During Hospitalization Category Date Time Status CT abdomen pelvis wo con 49927 Stat Cat Scan 11/17/23 09:52 Completed US pelv w/transvag [id number] Stat Ultrasound 11/17/23 11:10 Completed Laboratory Results WBC 13.83 10^3/uL (3.29-11.43) H 11/18/23 05:46 RBC 3.31 10^6/uL (3.85-5.65) L 11/18/23 05:46 Hgb 9.50 g/dL (11.27-16.99) L 11/18/23 05:46 Hct 29.5 % (36-47) L 11/18/23 05:46 MCV 89.1 fl (85-98) 11/18/23 05:46 MCH 28.7 pg (27-33) 11/18/23 05:46 MCHC 32.2 g/dL (30-55) 11/18/23 05:46 RDW 13.1 % (12.1-15.1) 11/18/23 05:46 Plt Count 203 10^3/cmm (157-399) 11/18/23 05:46 MPV 10.3 fL (7.4-10.4) 11/18/23 05:46 Neut % (Auto) 68.2 % 11/17/23 09:30 Lymph % (Auto) 22.4 % 11/17/23 09:30 [place] % (Auto) 5.2 % 11/17/23 09:30 Eos % (Auto) 3.0 % 11/17/23 09:30 Baso % (Auto) 0.8 % 11/17/23 09:30 Neut # (Auto) 6.96 10^3/uL (1.8-7.7) 11/17/23 09:30 Lymph # (Auto) 2.3 10^3/uL (0.8-4.8) 11/17/23 09:30 [place] # (Auto) 0.5 10^3/uL (0.2-0.9) 11/17/23 09:30 Eos # (Auto) 0.3 10^3/uL (0.0-0.8) 11/17/23 09:30 Baso # (Auto) 0.1 10^3/uL (0.0-0.1) 11/17/23 09:30 Nucleated RBC % (auto) 0 % 11/17/23 09:30 Nucleated RBCs # 0.0 /100WBC 11/17/23 09:30 Sodium 138 mmol/L (136-145) 11/17/23 09:30 Potassium 3.9 mmol/L (3.5-5.1) 11/17/23 09:30 Chloride 103 mmol/L (98-107) 11/17/23 09:30 Carbon Dioxide 25 mmol/L (22-29) 11/17/23 09:30 Anion Gap 13.9 (5-19) 11/17/23 09:30 BUN 12 mg/dL (6-20) 11/17/23 09:30 Creatinine 0.5 mg/dL (0.5-0.9) 11/17/23 09:30 GFR Calculation 148.0 mL/min (90-130) H 11/17/23 09:30 Glucose 112 mg/dL (65-115) 11/17/23 09:30 Calculated Osmolality 287 mOsm/kg (285-295) 11/17/23 09:30 Calcium 8.5 mg/dL (8.5-10.5) 11/17/23 09:30 Total Bilirubin 0.5 mg/dL (0.15-1.2) 11/17/23 09:30 AST 10 U/L (0-32) 11/17/23 09:30 ALT 11 U/L (0-33) 11/17/23 09:30 Alkaline Phosphatase 72 U/L (35-105) 11/17/23 09:30 Total Protein 6.9 g/dL (6.6-8.7) 11/17/23 09:30 Albumin 4.1 g/dL (3.5-5.2) 11/17/23 09:30 Globulin 2.8 g/dL (1.3-4.6) 11/17/23 09:30 HCG, Qual Negative (Negative) 11/17/23 09:30 Urine Color Yellow (Yellow) 11/17/23 10:00 Urine Appearance Clear (CLEAR) 11/17/23 10:00 Urine pH 6 (5-7) 11/17/23 10:00 Ur Specific [place] 1.020 (1.005-1.030) 11/17/23 10:00 Urine Protein Neg (Negative) 11/17/23 10:00 Urine Glucose (UA) Norm (Normal) 11/17/23 10:00 Urine Ketones Negative (Negative) 11/17/23 10:00 Urine Blood Neg (Negative) 11/17/23 10:00 Urine Nitrate Negative (Negative) 11/17/23 10:00 Urine Bilirubin Neg (Negative) 11/17/23 10:00 Urine Urobilinogen Norm mg/dL (Negative) 11/17/23 10:00 Ur Leukocyte Esterase Trace (Negative) H 11/17/23 10:00 Urine RBC 0-4 /hpf (0-2) H 11/17/23 10:00 Urine WBC 0-4 /hpf (0-5) H 11/17/23 10:00 Ur Squamous Epith Cells 0-4 /hpf (0-5) H 11/17/23 10:00 Amorphous Sediment Not Reportable 11/17/23 10:00 Urine Bacteria Trace /hpf (NONE) 11/17/23 10:00 Urine Mucus 2+ /hpf 11/17/23 10:00 Procedures Performed laparoscopy laparotomy Vitals Last Vital Signs Temp 97.6 F 11/19/23 12:07 Pulse 68 11/19/23 12:07 Resp 18 11/19/23 12:07 BP 110/71 11/19/23 12:07 Pulse Ox 100 11/19/23 12:07 O2 Del Method Room Air 11/19/23 12:07 Results Labs OB ([facility]): Hct 29.5 % (36-47) L 11/18/23 Hgb 9.50 g/dL (11.27-16.99) L 11/18/23 Plt Count 203 10^3/cmm (157-399) 11/18/23 HCG, Qual Negative (Negative) 11/17/23 [place] [address] Ultrasound Report Signed Patient: Eden Finch Unit #: [id number] : 1995 Age/Sex: 28 / F ADM Date: 11/17/23 Loc: ER Room/Bed: Attending Dr: Ordering Provider/Ordering MD: Blaze Orosco DO Date of Service: 11/17/23 Procedure(s): US pelv w/transvag [id number] Accession Number(s): [id number] Report Number: [id number] WS: [id number] US pelv w/transvag [id number] HISTORY: pelvic pain - ? R ovarian torsion? COMPARISON: Transvaginal pelvic ultrasound 08/18/2023, CT 11/17/2023 Uterus: 10.6 cm x 4.8 cm x 5.8 cm. Mildly enlarged anteverted uterus. Endometrium: 1.3 cm. Small amount of fluid along the endometrial canal. No mass or increased vascularity. Right ovary: The RIGHT ovary as visualized on the prior examination of 08/18/2023 is not identified. There is now a complex mass in the RIGHT adnexa without vascularity measuring 5.6 x 4.0 x 4.7 cm. There is no flow identified. This is most likely an ovarian torsion within ischemic ovary. Left ovary: 3.1 cm x 3.3 cm x 2.6 cm. Normal size and vascularity, no cystic or solid masses. No free fluid in the cul-de-sac. IMPRESSION: 1. Heterogeneous RIGHT adnexal mass without vascularity measures 5.6 x 4.0 x 4.7 cm. Based upon the prior imaging from 08/18/[address] today this is most likely an ovarian torsion with loss of vascularity. Consider SAND ANALYST consultation. No ovarian mass or lead point was identified on the study of 08/18/2023. 2. No free fluid. 3. Normal LEFT ovary. Dictated By: Aaliyah Hernandez DO Discharge Plan Discharge Patient Disposition: Home Condition: Stable Prescriptions: New Percocet 10-325 mg tablet 1 tab PO BID PRN (Reason: pain) Qty: 30 0RF Continued Vitamin C 500 mg Tablet 500 mg PO BID Discharge Orders: Discharge Order (Routine); Ordered 11/19/23 Ordered By: Homer Mckeon Referrals: Homer Mckeon MD [Physician] - (We have notified your physician's clinic of the need for a follow-up appointment to be scheduled. If you have not heard from them within the next 2 business days, please call them directly. ) Diamond Rendon FNP [Primary Care Provider] - 11/25/23 1:30 pm (At [facility]) Discharge Diet: Usual diet Discharge Activity: Increase activity as tolerated Patient Instructions: Oxycodone/Acetaminophen (By mouth), Ovarian Cyst Removal (DC), Ovarian Torsion (GEN), Opioid Safety Discharge Attestations ACCOUNT SUPPORT ASSOCIATE Time Spent in Discharge Care*: less than 30 min Coding Level of Care Code Acute Code for Chg Fwd Diagnoses Hemorrhagic cyst of right ovary N83.201 Time Spent (min) 20
[2023-11-19 14:11] VITALS: BP 110/71; PULSE 68; RESP 18; TEMP 36.4; O2SAT 100
== END 2023-11-19 14:13 | disposition home or self-care (01) | DRG 983 ==
LOC: ER 11:55 → MEDSURG 15:12
PROVIDERS: Admitting Provider Obstetrics & Gynecology; Emergency Provider Family Medicine; PCP Nurse Practitioner Family; Visit Provider Obstetrics & Gynecology
PROC: 0W3J0ZZ Control Bleeding in Pelvic Cavity, Open Approach (ICD-10-PCS; CPT 49320; principal; 2023-11-17 17:00)
PROC: 0W3J0ZZ Control Bleeding in Pelvic Cavity, Open Approach (ICD-10-PCS; CPT 49000; 2023-11-17 17:00)
DX: N83.8 Other noninflammatory disorders of ovary, fallopian tube and broad ligament (principal); E66.01 Morbid (severe) obesity due to excess calories; Z68.36 Body mass index [BMI] 36.0-36.9, adult
CPT/HCPCS: 36415; 74176; 76830; 76856; 80053; 81001; 84703; 85025; 85027; 96361; 96374; 96375; 99285; C9290; J0690; J1170; J1885; J2250; J2270; J2405; J2704; J2710; J3010; J3490; J7030; J7121; P9045

== ENCOUNTER → 2025-05-31 11:03 | Outpatient (BNVA) | payer BC, MEDICAID, SELFPAY | PROVIDERS: PCP Nurse Practitioner Family | DX: R30.0 Dysuria (principal) | CPT/HCPCS: 81000 ==